=== PATIENT | female | born 1940 | race Asian ===

== ENCOUNTER 2016-08-09 09:17 | Emergency (ER) | payer OTHER, MEDICARE ==
[2016-08-09 09:22] VITALS: BMI 24.5
[2016-08-09] MEDS ORDERED: SODIUM CHLORIDE 1,000 ML IV SCH (10:15)
[2016-08-09 10:33] LABS: BASOPHIL 0.4 % (0-2.0); EOSINOPHIL 0.4 % (0-4.5); MCHC 34.6 g/dl (32.0-36.0); MEAN CELL VOLUME 95.5 fl (80-96); MEAN PLT VOLUME 7.7 fl (7.5-11.1); NEUTROPHILS 66.9 % (42.8-82.8); PLATELET COUNT 182 K/MM3 (134-434); RDW 12.4 % (11.6-15.6); WHITE BLOOD COUNT 4.6 K/mm3 (4.0-10.0)
--- NOTE | 2016-08-09 10:37 | PDOC ---
History of Present Illness - General History Source: Patient, Spouse Exam Limitations: No Limitations - History of Present Illness Initial Comments: 08/09/16 10:47 Patient is a 75 year old female with a significant past medical history of hypertension, hyperlipidemia and left ear deafness who presents to the ED with left sided weakness. As per the patient fell down few times during the last couple of weeks. reports increased left sided weakness and notes that the patient has been dragging her left foot and her left arm is progressively weaker. On Mothers Day the patient fell in the bathtub and hit her right side of her head. Patient denies any pain. PCP - Dr. Davison Medication - Hyzaar, Lipitor, toprol, norvasc, baby asa PSH: appendectomy, total knee replacement <Jasmine Saeed - Last Filed: 08/09/16 11:56> <Clarice Victoria - Last Filed: 08/09/16 12:15> - General Chief Complaint: Weakness Stated Complaint: LT SIDE WEAKNESS (PCP SENT) Time Seen by Provider: 08/09/16 09:42 NIH Stroke Scale - Initial Evaluation Level of consciousness: Alert Ask patient the month and their age: Answers both correctly Ask patient to open & close eyes; make fist and let go: Obeys both correctly Best gaze (horizontal eye movement): Normal Visual field testing: No visual field loss Facial paresis (Show teeth/raise eyebrows/close eyes tight): Normal symmetrical movement Motor Function: Left Arm: Drift Motor Function: Right Arm: Normal (extends arm 90 (or 45) degrees for 10 seconds without drift Motor Function: Left Leg: Drift Motor Function: Right Leg: Normal (extends leg 30 degrees for 5 seconds without drift) Limb Ataxia: No ataxia Sensory(Use pinprick test arms,legs,trunk,face/side to side): Normal Best language (Describe picture, name items, read sentences): No Aphasia Dysarthria (read several words): Normal articulation Extinction and Inattention: No abnormality - Total Score NIH Stroke Scale Score: 2 <Clarice Victoria - Last Filed: 08/09/16 12:15> Past History <Jasmine Saeed - Last Filed: 08/09/16 11:56> - Past Medical History Anemia: No Asthma: No Cancer: No Cardiac Disorders: No CVA: No COPD: No CHF: No Dementia: No Diabetes: No GI Disorders: No Disorders: No HTN: Yes Hypercholesterolemia: Yes Liver Disease: No Seizures: No Thyroid Disease: No - Surgical History Abdominal Surgery: No Appendectomy: Yes Cardiac Surgery: No Cholecystectomy: No Lung Surgery: No Neurologic Surgery: No Orthopedic Surgery: Yes (SPINAL FUSION,ARTHROSCOPIC LULA. KNEE/RIGHT TKR 2012) - Psycho/Social/Smoking Cessation Hx Anxiety: No Suicidal Ideation: No Smoking Status: No Smoking History: Never smoked Have you smoked in the past 12 months: No Number of Cigarettes Smoked Daily: 0 Hx Alcohol Use: No Drug/Substance Use Hx: No Substance Use Type: None Hx Substance Use Treatment: No <Clarice Victoria - Last Filed: 08/09/16 12:15> - Past Medical History Allergies/Adverse Reactions: Allergies Allergy/AdvReac Type Severity Reaction Status Date / Time No Known Drug Allergies Allergy Verified 08/09/16 09:22 Home Medications: Ambulatory Orders Losartan/Hydrochlorothiazide [Hyzaar 100-25 Tablet] 1 tab PO DAILY 10/11/11 Metoprolol Succinate [Toprol XL -] 50 mg PO DAILY 01/06/13 Multivitamin [Multivitamins] 1 each PO DAILY 01/06/13 Amlodipine Besylate [Norvasc -] 5 mg PO DAILY 01/08/13 Acetaminophen [Tylenol .Regular Strength -] 650 mg PO Q4H PRN #0 tablet Aspirin [ASA -] 325 mg PO DAILY #0 tablet 01/11/13 [place]-3 Fatty Acids [[place]-3] 1,000 mg PO DAILY 10/13/15 Rosuvastatin Calcium [Crestor] 5 mg PO DAILY 10/13/15 Atorvastatin Ca [Lipitor] 20 mg PO HS 08/09/16 Gluc Lamas/Chondro Lamas A/Vit C/Mn [Glucosamine Chondroitin Tab] 1 each PO DAILY 06/21 Review of Systems - Review of Systems Able to Perform ROS?: Yes Comments:: 08/09/16 10:47 GENERAL/CONSTITUTIONAL: No fever or chills. No weakness. HEAD, EYES, EARS, NOSE AND THROAT: No change in vision. No ear pain or discharge. No sore throat. GASTROINTESTINAL: No nausea, vomiting, diarrhea or constipation. GENITOURINARY: No dysuria, frequency, or change in urination. CARDIOVASCULAR: No chest pain or shortness of breath. RESPIRATORY: No cough, wheezing, or hemoptysis. MUSCULOSKELETAL: No joint or muscle swelling or pain. No neck or back pain. SKIN: No rash NEUROLOGIC: +left sided weakness. No headache, vertigo, loss of consciousnes. ENDOCRINE: No increased thirst. No abnormal weight change. HEMATOLOGIC/LYMPHATIC: No anemia, easy bleeding, or history of blood clots. ALLERGIC/IMMUNOLOGIC: No hives or skin allergy. <Jasmine Saeed - Last Filed: 08/09/16 11:56> *Physical Exam - Vital Signs Last Vital Signs Temp Pulse Resp BP Pulse Ox 98.3 F 80 18 179/87 98 08/09/16 09:17 08/09/16 09:17 08/09/16 09:17 08/09/16 09:08/09/16 10:40 - Physical Exam Comments: 08/09/16 10:47 GENERAL: Awake, alert, and fully oriented, in no acute distress HEAD: No signs of trauma EYES: PERRLA, EOMI, sclera anicteric, conjunctiva clear ENT: Auricles normal inspection, nares patent, Moist mucosa NECK: Normal ROM, supple, no lymphadenopathy, JVD, or masses LUNGS: Breath sounds equal, clear to auscultation bilaterally. No wheezes, and no crackles HEART: Regular rate and rhythm, normal S1 and S2, no murmurs, rubs or gallops ABDOMEN: Soft, nontender, normoactive bowel sounds. No guarding, no rebound. No masses EXTREMITIES: Normal range of motion, no edema. No clubbing or cyanosis. No cords, erythema, or tenderness NEUROLOGICAL: Cranial nerves intact, left sided 4+/5, left leg 4+/5 all else 5/5 , finger to nose normal, VF intact, Normal speech SKIN: Warm, Dry, normal turgor, no rashes or lesions noted. <Jasmine Saeed - Last Filed: 08/09/16 11:56> - Vital Signs Last Vital Signs Temp Pulse Resp BP Pulse Ox 98.3 F 80 18 179/87 97 08/09/16 09:17 08/09/16 09:17 08/09/16 09:17 08/09/16 09:17 08/09/16 09:17 <Clarice Victoria - Last Filed: 08/09/16 12:15> ED Treatment Course - LABORATORY CBC & Chemistry Diagram: 08/09/16 10:20 08/09/16 10:20 - ADDITIONAL ORDERS Additional order review: 08/09/16 10:20 RBC 3.97 MCV 95.5 MCHC 34.6 RDW 12.4 MPV 7.7 D Neutrophils % 66.9 Lymphocytes % 26.2 Monocytes % 6.1 Eosinophils % 0.4 Basophils % 0.4 <Jasmine Saeed - Last Filed: 08/09/16 11:56> - LABORATORY CBC & Chemistry Diagram: 08/09/16 10:20 08/09/16 10:20 - RADIOLOGY Radiology Studies Ordered: Category Date Time Status HEAD CT (STROKE) [CT] Stat CT Scan 08/09/16 10:12 Ordered CHEST X-RAY PORTABLE* [RAD] Stat Radiology 08/09/16 10:13 Ordered <Clarice Victoria - Last Filed: 08/09/16 12:15> Medical Decision Making - Medical Decision Making 08/09/16 11:52 A call was placed to [facility] to initiate transfer. 08/09/16 11:56 Accepting physcian in [facility] is Dr. Garcia <Jasmine Saeed - Last Filed: 08/09/16 11:56> - Medical Decision Making 08/09/16 10:30 75 yo F with h/o HTN HLD, right ear deafness, here with frequent falls last 2 mo . noted yesterday by her who is an anesthesioloigst, that she was having left sided weakness. no noted facial droop, did note slower speech, but overal clarity was good. no n/v. no f/c no cp no sob. no other complaints. weakness 24 hours old at a minimum , but possibly longer. on exam pt awake alert facies symmetric, lungs clear. heart regular, abd soft NT. skin warm and dry. nuero exam CN intact, left sided 4+/5, left leg 4+/5 all else 5/5. finger to nose normal. speech clear, vf intact. plan: differential dgx, subdural, vs. cva electrolyte abnromality, infection . plan ekg labs ct head, cxr will deborah admit . will susi [phone]. 08/09/16 12:14 pt with subdural hematoma on ct scan. will be transfered to [facility] after discussion with family. pt on asa, dave treat with transfusion of platelets. given keppra. per margi Barger at [facility], no need for decadron or steroids. <Clarice Victoria - Last Filed: 08/09/16 12:15> *DC/Admit/Observation/Transfer - Attestations Scribe Attestion: 08/09/16 10:47 Documentation prepared by ANTONIO Allred, acting as internist medical doctor md for Clarice Victoria MD. <Jasmine Saeed - Last Filed: 08/09/16 11:56> - Discharge Dispostion Admit: Yes <Clarice Victoria - Last Filed: 08/09/16 12:15> Diagnosis at time of Disposition: Subdural hematoma - Discharge Dispostion Disposition: TRANSFER ACUTE CARE/OTHER HOSP Condition at time of disposition: Guarded - Referrals Referrals: Lisa Herzog RN [Primary Care Provider] -
--- NOTE | 2016-08-09 10:44 | EKG ---
Test Reason : Blood Pressure : / mmHG Vent. Rate : 070 BPM Atrial Rate : 070 BPM P-R Int : 168 ms QRS Dur : 086 ms QT Int : 424 ms P-R-T Axes : 036 -18 022 degrees QTc Int : 457 ms NORMAL SINUS RHYTHM MODERATE VOLTAGE CRITERIA FOR LVH, MAY BE NORMAL VARIANT BORDERLINE ECG WHEN COMPARED WITH ECG OF 08-JAN-2013 13:17, NO SIGNIFICANT CHANGE WAS FOUND Confirmed by MARILIN SILVERIO, JAMIE ([id number]) on 08/09/2016 10:44:40 AM Referred By: Confirmed By:JAMIE GASTON MD
[2016-08-09 10:47] LABS: ALBUMIN 4.2 g/dl (3.4-5.0); ANION GAP 9 (8-16); CALCIUM 9.2 mg/dL (8.5-10.1); CHOLESTEROL 180 mg/dL (50-200); CO2 28 mmol/L (21-32); GLUCOSE,RANDOM 144 mg/dL (74-106)
[2016-08-09 10:50] LABS: ALK PHOS 41 U/L (45-117); BILIRUBIN,TOTAL 0.5 mg/dL (0.2-1.0); CREATININE 0.6 mg/dL (0.55-1.02); LDL CHOLESTEROL (ONLY SJRH) 107 mg/dL (5-100); SGPT/ALT 36 U/L (12-78); TOT PROT 7.5 g/dl (6.4-8.2); TROPONIN I < 0.02 ng/ml (0.00-0.05)
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
[2016-08-09 10:55] LABS: SGOT/AST 42 U/L (15-37)
[2016-08-09 11:05] LABS: URINE APPEARANCE CLEAR; URINE BILIRUBIN NEGATIVE (NEGATIVE); URINE BLOOD NEGATIVE (NEGATIVE); URINE COLOR STRAW; URINE GLUCOSE (UA) NEGATIVE (NEGATIVE); URINE KETONE NEGATIVE (NEGATIVE); URINE LEUK ESTERASE NEGATIVE (NEGATIVE); URINE NITRITE NEGATIVE (NEGATIVE); URINE PROTEIN NEGATIVE (NEGATIVE); URINE UROBILINOGEN NEGATIVE E.U./dl (0.2-1.0)
[2016-08-09] MEDS ORDERED: levETIRAcetam 500 MG/5 ML INJECTION VIAL IVPB ONE ×2 (12:13→12:53)
[2016-08-09 13:32] VITALS: BP 139/78; PULSE 70; TEMP 97.8
== END 2016-08-09 13:50 | disposition short-term general hospital (02) ==
LOC: SUPCPDRO 09:17 → JER 09:17
PROC: 3E033GC Introduction of Other Therapeutic Substance into Peripheral Vein, Percutaneous Approach (ICD-10-PCS; principal; 2016-08-09)
DX: S06.2X0A Diffuse traumatic brain injury without loss of consciousness, initial encounter (principal); Z91.81 History of falling; I10 Essential (primary) hypertension; E78.00 Pure hypercholesterolemia, unspecified; H91.91 Unspecified hearing loss, right ear
CPT/HCPCS: 36415; 36430; 70450-TC; 71010-TC; 80053; 81003; 82465; 82550; 82553; 83718; 83721; 84478; 84484; 85025; 85610; 86850; 86900; 86901; 93005; 93010; 96374; 99285-25; P9034

== ENCOUNTER 2018-02-27 06:17 | Day surgery (SDC) | payer OTHER, MEDICARE ==
[2018-02-25 15:05] VITALS: BMI 24.5
[~2018-02-27 06:17] MED LIST: BUPIVACAINE HCL/PF (5 MG/ML) 30 ML VIAL IJ ONE; LIDOCAINE HCL 1%, 10 MG/ML (50 mL VIAL) IJ ONE
[2018-02-27 06:38] VITALS: TEMP 97.6
[2018-02-27] MEDS ORDERED: MIDAZOLAM HCL 2 MG/2 ML SINGLE DOSE VIAL ONE (07:10)
[2018-02-27] MEDS ORDERED: PROPOFOL 20 ML ONE (07:10)
[2018-02-27] MEDS ORDERED: LIDOCAINE HCL/PF 2% SDV 5ML VIAL ONE (07:12)
[2018-02-27] MEDS ORDERED: BUPIVACAINE HCL/PF 0.5% (5MG/ML) 10 ML VIAL ONE (07:30)
[2018-02-27] MEDS ORDERED: LIDOCAINE HCL 1%, 10 MG/ML (20ML VIAL) ONE (07:31)
[2018-02-27] MEDS ORDERED: ceFAZolin SODIUM 1 GM VIAL IVPB ONE (08:22)
[2018-02-27] MEDS ORDERED: ceFAZolin SODIUM 1 GM VIAL ONE ×2 (08:22→10:04)
[2018-02-27] MEDS ORDERED: BUPIVACAINE HCL/PF (5 MG/ML) 30 ML VIAL IJ ONE ×2 (08:34)
[2018-02-27] MEDS ORDERED: LIDOCAINE HCL 1%, 10 MG/ML (50 mL VIAL) IJ ONE ×2 (08:34)
--- NOTE | 2018-02-27 08:37 | HP ---
Satellite [facility] - Chief Complaint Chief Complaint: left wrist pain - Past Medical History Allergies/Adverse Reactions: Allergies Allergy/AdvReac Type Severity Reaction Status Date / Time dog dander Allergy Verified 02/25/18 15:05 No Known Drug Allergies Allergy Verified 08/09/16 09:22 - Current Medications Current Medications: Home Medications Medication Instructions Recorded Losartan/Hydrochlorothiazide 1 tab PO DAILY 10/11/11 [Hyzaar 100-25 Tablet] Metoprolol Succinate [Toprol XL -] 50 mg PO DAILY 01/06/13 Multivitamin [Multivitamins] 1 each PO DAILY 01/06/13 Amlodipine Besylate [Norvasc -] 5 mg PO DAILY 01/08/13 Acetaminophen [Tylenol .Regular 650 mg PO Q4H PRN #0 tablet 01/11/13 Strength -] [place]-3 Fatty Acids [[place]-3] 1,000 mg PO DAILY 10/13/15 Rosuvastatin Calcium [Crestor] 5 mg PO DAILY 10/13/15 Atorvastatin Ca [Lipitor] 20 mg PO HS 08/09/16 Oxycodone HCl/Acetaminophen 1 tab PO Q6H #20 tablet MDD 4 02/27/18 [Percocet 5-325 mg Tablet] Satellite Physical Exam - Physical Examination Vital Signs: Vital Signs Period Temp Pulse Resp BP Sys/Pinon Pulse Ox Last 24 Hr 97.6 F 66 20 156/88 98 General Appearance: Well Nourished, Well Developed, Alert & Oriented x3 ENT: Clear Lung: Normal air movement Heart: Regular rate & rhythm Extremities: Other (left wrist- + mass, nvi) Neurological: Intact, Alert, Oriented Satellite Impression/Plan - Impression/Plan Impression: left wrist mass Operative Procedure: left wrist mass excision Date to be Performed: 02/27/18
[2018-02-27] MEDS ORDERED: DEXAMETHASONE SOD PHOSPHATE 4 MG/1 ML VIAL ONE (08:41)
--- NOTE | 2018-02-27 09:15 | OP ---
Operative Note - Note: Operative Date: 02/27/18 Pre-Operative Diagnosis: left wrist volar mass/ganglion, dorsal mass/ganglion, carpal boss Operation: excision left wrist volar and dorsal mass/ganglion, excision of carpal boss Post-Operative Diagnosis: Same as Pre-op Surgeon: Shay Goddard Anesthesiologist/RESEARCH PSYCHOLOGIST: Chele Robbins Anesthesia: Local, MAC Specimens Removed: mass/ganglion x 2 Estimated Blood Loss (mls): 0 Drains, Volume Out (mls): 0 Blood Volume Replaced (mls): 0 Fluid Volume Replaced (mls): 500 Operative Report Dictated: Yes
--- NOTE | 2018-02-27 09:52 | OP ---
DATE OF OPERATION: 02/27/2018 PREOPERATIVE DIAGNOSIS: Left wrist volar mass/ganglion, dorsal mass/ganglion, and carpal boss. SURGERY: Excision left wrist volar mass/ganglion, excision left wrist dorsal mass/ganglion, and excision of carpal boss. SURGEON: Shay Goddard MD CODING EDUCATOR: None. PRODUCTION TEAM MEMBER: Chele Malcolm CRNA DRAINS: None. COMPLICATIONS: None. SPECIMENS: Volar dorsal wrist mass/ganglion. BLOOD LOSS: None. BLOOD GIVEN: None. FLUID REPLACEMENT: 500 mL. INDICATIONS: This patient is a 77-year-old female with a preoperative diagnosis of a mass on the volar radial aspect of the left wrist as well as a smaller, more painful mass on the dorsal aspect of the left wrist, and a carpal boss. After understanding the potential risks, complications, alternatives, and benefits of surgery versus nonsurgical treatment, the patient elected to undergo this procedure. She understands that she may have temporary or permanent paresthesias and there is a small risk of recurrence of ganglion cyst at this or other locations. DESCRIPTION OF PROCEDURE: The patient was brought to the operating room, peripheral IV was placed, IV sedation was given. One gram of IV Ancef given, MAC anesthesia was induced. The left upper extremity was prepped and draped in sterile fashion. The entire case was done under a 3.8 loupe magnification. A longitudinal incision was marked out over the volar radial aspect of the left wrist, and a transverse incision marked out over the dorsal aspect. The area was injected with a total of 10 mL of 0.5% Marcaine and 1% lidocaine mix. It was then elevated, exsanguinated with an Esmarch bandage, and the tourniquet inflated to 250 mmHg. We started with the volar mass. An incision was made with a No. 15 scalpel blade. Subcutaneous hemostasis was achieved with the bipolar cautery. Circumferential dissection was done after Weitlaner retractor was placed into the wound for better visualization and medial and lateral flaps were raised. Littler scissors was used to do circumferential dissection around an obvious abnormal ganglion cyst. I was able to find its stalk, decapitate it at its base, and pass it off the field. Two vessels were running through the mass, one appeared to be the radial artery and the other appeared to be either a more medial artery or vein. It was preserved, and the mass was dissected free of the vessels. The area was copiously irrigated and washed out. I did not see or feel any other abnormal tissue. The deep dermal layer was closed with 4-0 undyed Vicryl. Final skin reapproximation was done with a running subcuticular 4-0 Biosyn stitch, which was then covered with Steri-Strips. Next, our attention was turned to the dorsal mass. A transverse incision made with a No. 15 scalpel blade. Subcutaneous hemostasis was achieved with the bipolar cautery. Circumferential dissection was done with the Littler scissors. There was an obvious ganglion cyst going through the extensor tendons, but it also was on top of 2 small carpal bosses. Therefore, the ganglion cyst was excised and passed off the field as specimen No. 2, dorsal mass, and a small rongeur was used to excise these 2 prominent carpal bosses. It was irrigated and washed out. I was able to see and feel that there were no other abnormal pieces of bone or ridges. The deep dermal layer was closed with 4-0 undyed Vicryl, and final skin reapproximation was done with 4-0 Biosyn, again covered with Steri-Strips. The area was covered with 4x4 gauze, fluffs between the fingers, Webril and Coban. The total tourniquet time was about 35 minutes. There were no complications during the case. The patient tolerated the procedure well and was brought to the ambulatory recovery room in stable condition. Keely [id number]
[2018-02-27 10:43] VITALS: BP 141/74; PULSE 56
[2018-02-27] MEDS ORDERED: ePHEDrine SULFATE 50 MG/1 ML AMPULE ONE (10:51)
--- NOTE | 2018-03-01 20:47 | PATH ---
Surgical Pathology Report Patient Name: IDA SIMS [facility]. Rec. #: [id number] /Age/Gender: 1940 (Age: 77) / F Account: [id number] Location: [facility] Taken: 02/27/2018 Received: 02/27/2018 Reported: 03/01/2018 Physicians: Shay Goddard M.D. Specimen(s) Received A: MASS LEFT WRIST VOLAR B: MASS LEFT WRIST DORSAL Clinical History Left wrist mass, ganglion cyst Final Diagnosis A. MASS, WRIST, LEFT, VOLAR, EXCISION: FIBROCONNECTIVE TISSUE AND ADIPOSE TISSUE WITH PROMINENT MYXOID CHANGES CONSISTENT WITH GANGLION CYST. B. MASS, WRIST, LEFT, DORSAL, EXCISION: FIBROCONNECTIVE TISSUE AND FIBROADIPOSE TISSUE WITH FOCAL MYXOID CHANGE CONSISTENT WITH GANGLION CYST. Electronically Signed Wilma Ambriz M.D. Gross Description A. Received in formalin labeled "mass left wrist volar," is a 1.7 x 1.4 x 0.3 cm aggregate of greenwood-yellow soft tissue fragments. The specimen is submitted in toto in one cassette. B. Received in formalin labeled "mass left wrist dorsal," is a 2.3 x 1.7 x 0.3 cm aggregate of greenwood-yellow soft tissue fragments. The specimen is submitted in toto in one cassette. /02/28/201802/28/2018
== END 2018-02-27 11:00 | disposition home or self-care (01) ==
LOC: JASU-SURG 06:17
PROVIDERS: ATTEND Orthopaedic Surgery
PROC: 0LB60ZZ Excision of Left Lower Arm and Wrist Tendon, Open Approach (ICD-10-PCS; 2018-02-27)
PROC: 0PBN0ZZ Excision of Left Carpal, Open Approach (ICD-10-PCS; 2018-02-27)
PROC: 0PBN0ZZ Excision of Left Carpal, Open Approach (ICD-10-PCS; 2018-02-27)
PROC: 0LB60ZZ Excision of Left Lower Arm and Wrist Tendon, Open Approach (ICD-10-PCS; principal; 2018-02-27 08:00)
DX: M67.432 Ganglion, left wrist (principal); M77.9 Enthesopathy, unspecified
CPT/HCPCS: 88304-TC